=== PATIENT | male | born 1950 | race Caucasian/White ===

== ENCOUNTER 2018-11-15 15:05 | Observation (INO) | payer OTHER ==
[2018-11-15] MEDS ORDERED: DILTIAZEM HCL/D5W 125 ML IV SCH (16:30)
[2018-11-15 16:39] LABS: PLATELET COUNT 202 10^3/uL (150-400)
[2018-11-15 17:04] LABS: PROTIME(PATIENT) 12.8 SEC (12.0-15.0)
[2018-11-15] MEDS: APIXABAN 5 MG TAB PO SCH (20:49)
[2018-11-15] MEDS ORDERED: LOSARTAN POTASSIUM 50 MG TAB PO SCH (21:00)
[2018-11-16] MEDS ORDERED: ATROPINE SULFATE 1 MG/10 ML SYR IVP ONE (06:00)
[2018-11-16] MEDS ORDERED: NS 1,000 ML IV ONE (06:00)
[2018-11-16] MEDS: APIXABAN 5 MG TAB PO SCH (07:45)
[2018-11-16] MEDS ORDERED: ATROPINE SULFATE 1 MG/10 ML SYR ONE (08:04)
[2018-11-16] MEDS ORDERED: MIDAZOLAM 2 MG/2 ML VIAL ONE (08:11)
[2018-11-16] MEDS ORDERED: ETOMIDATE 40 MG/20 ML INJ ONE (08:12)
[2018-11-16] MEDS ORDERED: fentaNYL 100 MCG/2 ML INJ ONE (08:12)
--- NOTE | 2018-11-16 08:21 | PDHPUP ---
History & Physical Update H&P update statement: This history and physical update is based on an assessment of the patient which was completed after admission or registration (within 24 hours), but prior to the surgery/procedure. H&P update: H&P reviewed & patient examined, no change in patient's condition since H&P completed
--- NOTE | 2018-11-16 08:22 | PDPROPOC ---
Sedation Plan of Care Sedation Plan of Care: vital signs stable, mental status noted, patient educated of risks, benefits, alternatives, patient can tolerate sedation ASA Classification: ASA 3 Planned drugs: fentanyl, midazolam, other (etomidate) Mallampati Score: Class 2 Mallampati Reference Image: Patient passed 3-3-2 rule?: Yes
[2018-11-16] MEDS ORDERED: ONDANSETRON 4 MG/2 ML VIAL ONE (08:30)
[2018-11-16] MEDS ORDERED: ADENOSINE 6 MG/2 ML VIAL ONE (08:30)
[2018-11-16] MEDS ORDERED: CETIRIZINE 10 MG TAB PO SCH (09:00)
[2018-11-16] MEDS ORDERED: ASPIRIN EC 81 MG TAB PO SCH (09:00)
[2018-11-16] MEDS ORDERED: METOPROLOL SUCCINATE XR 25 MG TAB PO SCH (09:00)
[2018-11-16] MEDS ORDERED: MIDAZOLAM 2 MG/2 ML VIAL IVP ONE (10:45)
[2018-11-16] MEDS ORDERED: ADENOSINE 6 MG/2 ML VIAL IVP ONE (10:45)
[2018-11-16] MEDS ORDERED: fentaNYL 100 MCG/2 ML INJ IVP ONE (10:45)
[2018-11-16] MEDS ORDERED: ETOMIDATE 40 MG/20 ML INJ IV ONE (10:45)
[2018-11-16] MEDS ORDERED: ONDANSETRON 4 MG/2 ML VIAL IVP ONE (10:45)
[2018-11-16] MEDS ORDERED: NS 500 ML IV ONE (11:17)
--- NOTE | 2018-11-16 11:24 | ASDISCHSUM ---
Discharge Information Plan Status:Home with No Needs Medically Cleared to Leave:11/16/2018 Discharge Date:11/16/2018 CM D/C Disposition:Home, Routine, Self-Care ADT D/C Disposition:Home, Routine, Self-Care Projected Discharge Date:11/16/2018 Transportation at D/C: Discharge Delay Reason: Follow-Up Date:11/16/2018 Discharge Slot: Final Diagnosis: Placement Information Patient Contact Information Contact Name:JARED Relationship: Address:[address] [place] [address] Work Phone: City:[place] Alternate Phone: State/Zip Code:[place] [address] Email: Financial Information Financial Class:[employer] Primary Plan Desc:[facility] [employer] OPEN ACC LOCAL Primary Plan Number:[id number] Secondary Plan Desc: Secondary Plan Number: Assessment Information LACE LACE Length of stay for Answers: Less than 1 day current admission Acuity / Level of Answers: No Care: Did the patient have an inpatient admission? # of Emergency department Answers: 0 visits in the last 6 months Date Signed: 11/16/2018 11:23 AM Electronically Signed By:Sharon Meadows Intervention Information Intervention Type:No Admission Order Date of Service:11/16/2018 08:20 AM Patient Type:Observation Staff Member:ALISON Magana Patricia Hours: Discipline: Severity: Comment:
--- NOTE | 2018-11-16 12:23 | CPIP ---
[f rep st] INVASIVE CARDIAC PROCEDURE DATE OF PROCEDURE: 11/16/2018 PROCEDURE PERFORMED: A YONY guided cardioversion for a diagnosis of persistent atrial tachycardia wit h one-to-one conduction, requiring hospitalization. COMPLICATIONS: None. CONTINUOUS MINING OPERATOR: Ian Alas MD INDICATIONS/APPROPRIATE USE CRITERIA: The patient was noted to be in atrial tachycardia by Dr. German liu 1 to 1 conduction and was admitted to the hospital for rate control overnight. DESCRIPTION OF PROCEDURE: On the morning of the procedure, the patient was informed of the risks, be nefits, and alternative of the procedure. His heart rate was well controlled on a Cardizem drip. Af ter n.p.o. status was confirmed, the oropharynx was anesthetized with Cetacaine spray. The patient r eceived appropriate intravenous conscious sedation with Versed and fentanyl. A 3-D YONY probe was the n advanced with ease into the esophagus and standard multiplane ultrasound images were obtained of th e heart. The patient was noted to have mild MR of a prior mitral valve valvuloplasty, moderate aorti c insufficiency which was centrally located was noted. The atrial appendage was identified, and ther e was no evidence of atrial clot on X, Y axis interrogation of the atrial appendage. Pulse Doppler w as a relatively low signal. However, there is no evidence of significant spontaneous echo contrast o r other evidence of left atrial thrombus. The YONY probe was removed. Then, to determine if the latasha ent had slow AVNRT or atrial tachycardia, we did give 6 mg of adenosine, followed by chaser of 10 cc of saline, this demonstrated the patient had atrial tachycardia at a rate of approximately 150 to 160 . We allowed the adenosine to wear off and then gave the patient a dose of 6 mg of etomidate which i s 0.8 mg/kg. After adequate deep sedation had been achieved, the patient underwent countershock with 200 joules of biphasic synchronized countershock with the patches positioned in an anterior and post erior position with subsequent return of the rhythm to normal sinus with PACs and occasional PVCs. T he patient came out in sinus bradycardia with relatively low blood pressure. He also had a relativel y long periods of apnea with sustained oxygenation with oxygen levels in the 100s. We, therefore, ga ve the patient 0.5 mg of atropine to bring his heart rate and blood pressure up, which he responded n icely to. The patient was recovered over the next 10 to 15 minutes with good recovery of his heart r ate to 62 beats per minute, and a blood pressure of 120/82. The patient was gradually awakened and a ble to respond appropriately. We elected not to reverse the Versed and fentanyl because the patient was clinically stable and when he has had procedures like this in the past, he has awakened with carlos alberto re nausea, for which we ultimately gave him a prophylactic dose of Zofran 4 mg. FINAL IMPRESSION: Successful transesophageal echocardiography-guided cardioversion for indication of atrial tachycardia with initially 1 to 1 block and proof of atrial tachycardia with adenosine infusi on. /[id number]/MODL
--- NOTE | 2018-11-16 13:25 | CPEKG ---
Test Reason : OPEN Blood Pressure : / mmHG Vent. Rate : 063 BPM Atrial Rate : 063 BPM P-R Int : 218 ms QRS Dur : 104 ms QT Int : 450 ms P-R-T Axes : 081 -39 000 degrees QTc Int : 461 ms Sinus rhythm vs ectopic atrial rhythm Borderline prolonged ID interval Left axis deviation Consider right ventricular hypertrophy Confirmed by Shyanne Hilliard ([id number]) on 11/16/2018 1:25:19 PM Referred By: Marlo Ahn Confirmed By:Shyanne Hilliard
--- NOTE | 2018-11-16 13:44 | GDS ---
[f rep st] DISCHARGE SUMMARY DISCHARGE DIAGNOSES: 1. Atrial tachycardia, status post YONY-guided direct cardioversion today. 2. History of ablation in 2016, with pulmonary vein isolation, roof line, mitral isthmus line and CT isthmus line. 3. History of mitral valve repair in 2000. 4. Hypertension. 5. Cardiomyopathy noted on chart review, related to rapid ventricular response in the past. PROCEDURES: YONY-guided direct-current cardioversion. BRIEF HISTORY: Please see dictated H and P from Dr. Porter's office for complete details. In brief, th e patient is a 68-year-old male with a history of mitral valve repair in 2000, atrial fibrillation ab lation in 2016, who presented in an atrial tachycardia at a rate of 176 beats/minute to office. He w as referred for direct admission for YONY-guided cardioversion. This was done this morning. Currentl y, patient reports feeling well. He has ambulated and eaten without issues. He is being discharged on Eliquis 5 mg p.o. twice daily. 1. Atrial tachycardia. He will need follow up with Dr. Porter in the outpatient setting. 2. Mitral valve repair with history of cardiomyopathy. He will see Medina Gunn or Dr. Alas in the ou tpatie setting. He will need an updated transthoracic echocardiogram in the near future. 3. Hypotension. He was noted to be hypotensive post cardioversion. He has been given 500 mL is of normal saline. His losartan is being held. He is advised to monitor daily blood pressures and consi eleuterio ongoing hold of losartan. He will be continued on his metoprolol succinate. PHYSICAL EXAM: VITAL SIGNS: On day of discharge, blood pressure 95/50, heart rate 48, respirations 19, O2 saturation of 95%. GENERAL: He is a very pleasant male in no apparent distress. HEENT: Annamaria eason is normocephalic, atraumatic. Eyes without scleral icterus. HEART: Regular rate and rhythm with a midsystolic click. LUNGS: Clear to auscultation. SKIN: Warm and dry without edema. PSYCH: Nor mal mood and affect. DISCHARGE MEDICATIONS: His new medication is Eliquis 5 mg p.o. twice daily. He is to hold his losar cardona. He may continue his metoprolol succinate. He may discontinue aspirin as well. DISCHARGE INSTRUCTIONS: 1. Follow up with Medina Gunn or Dr. Alas in 1-2 weeks' time. 2. Outpatient transthoracic echo. 3. Follow up with Dr. Porter. /[id number]/MODL
[2018-11-16 14:27] VITALS: BP 103/60
== END 2018-11-16 14:45 | disposition home or self-care (01) ==
LOC: F2W 15:36
PROVIDERS: ADMIT Internal Medicine Cardiovascular Disease; ATTEND Internal Medicine Cardiovascular Disease
DX: I47.1 Supraventricular tachycardia (principal); I10 Essential (primary) hypertension; I95.81 Postprocedural hypotension
CPT/HCPCS: 92960; 93005; 93312; G0378; J0153; J0461; J2250; J2405; J3010